=== PATIENT | male | born 1950 ===

== ENCOUNTER 2023-03-12 08:09 | Day surgery (SDC) | payer MEDICARE ==
[2023-03-06 10:04] VITALS: BMI 29.0
[~2023-03-12 08:09] MED LIST: DEXAMETHASONE SOD PHOSPHATE 4 MG/ML 1 ML VIAL IV ONE; FAMOTIDINE 20 MG/2 ML VIAL IV PRN; HYDROmorphone 0.5 MG/0.5 ML SYRINGE IVP PRN; LIDOCAINE 1% (10MG/ML) FOR IV START INTRADERMA PRN; ONDANSETRON 4 MG/2 ML VIAL IVP ONE; droPERidol 5 MG/2 ML VIAL IVP ONE
[2023-03-12 08:50] VITALS: TEMP 97.2
[2023-03-12 08:52] LABS: Glucose,Whole Blood 174 mg/dL (70-110)
[2023-03-12] MEDS: LACTATED RINGERS 1,000 ML IV SCH ×2 (08:56→09:12)
[2023-03-12] MEDS ORDERED: LIDOCAINE 4% LTA KIT (4 ML) TOPICAL ONE (09:11)
[2023-03-12] MEDS ORDERED: MIDAZOLAM 2 MG/2 ML VIAL ONE (09:11)
[2023-03-12] MEDS ORDERED: fentaNYL (PF) 50 MCG/ML 2 ML AMP ONE (09:11)
[2023-03-12] MEDS ORDERED: SUCCINYLCHOLINE CHLORIDE 200 MG/10 ML VIAL IV ONE (09:11)
[2023-03-12] MEDS ORDERED: PROPOFOL 10 MG/ML 20 ML VIAL IV ONE (09:11)
[2023-03-12] MEDS ORDERED: DEXAMETHASONE SOD PHOSPHATE 10 MG/ML 1 ML VIAL ONE (09:11)
[2023-03-12] MEDS ORDERED: LIDOCAINE 1% INJ 10MG/ML (20 ML MDV) ONE (09:11)
[2023-03-12] MEDS ORDERED: LIDOCAINE 2%-EPI 1:100,000 20 ML VIAL SQ ONE (09:39)
--- NOTE | 2023-03-12 10:05 | P.OP ---
Date of Procedure: 03/12/23 Preoperative Diagnosis: Laryngeal and nasopharyngeal papillomas, right nasal polyp Postoperative Diagnosis: Same, appearance of right posterior nasal and nasopharyngeal papilloma rather than polyp Procedure(s) Performed: Right nasal endoscopy with papilloma removal from the right posterior nasal cavity and nasopharynx Microlaryngoscopy with biopsy and excision of laryngeal papillomas Anesthesia: ERIN Surgeon: Julio Penn Estimated Blood Loss (ml): 5 Pathology: other (Right nasal polyp, nasopharyngeal papillomas, laryngeal papillomas) Condition: stable Disposition: PACU Indications for Procedure: This 72-year-old white male with a 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 He also has more recent nasal airway obstruction particularly on the right with visualized polyp posteriorly on the right Operative Findings: Right posterior nasal cavity and nasopharyngeal papillomas this was confluent and appeared to be approximately 2 cm, papillomas right and left false and true vocal cords approximate 1 cm total diameter Description of Procedure: The patient was brought in the operative suite and placed in a supine position. The patient underwent induction of general anesthesia with oral endotracheal intubation without difficulty. The patient was prepped and draped in usual aseptic fashion. I will nasal endoscopy was performed. Proceeding on the right the right nasal and nasopharyngeal papillomatous appearing tissue was debrided with microdebrider 4 mm blade and then hemostasis gained with suction cautery. Once hemostasis was obtained attention was turned to the larynx. Tooth guard was placed and direct laryngoscopy was performed with systematic evaluation of the base of tongue vallecula both piriform sinuses post cricoid area and endolarynx. With the larynx in good visualization the laryngoscope was placed in suspension and the Zeiss microscope was brought into position. Gross papillomas on the left false vocal cord right false vocal cord and right true vocal cords were debrided from with the dice spotter microdebrider blade leaving the normal-appearing mucosa intact. The lamina propria was left intact on the true vocal cord. Once the gross papillomas were debrided hemostasis was noted to be good spontaneously and the laryngoscope and tooth guard were removed. The patient was then suctioned in oral gastric action. The patient was laid procedure well was excised in the operating suite and transferred to postop recovery area in satisfactory condition.
[2023-03-12 10:36] VITALS: RESP 16
[2023-03-12] MEDS ORDERED: ACETAMINOPHEN TAB 500 MG TAB PO ONE (11:05)
[2023-03-12] MEDS ORDERED: ACETAMINOPHEN TAB 500 MG TAB ONE (11:06)
[2023-03-12 11:28] VITALS: BP 121/76; PULSE 85
== END 2023-03-12 11:52 | disposition home or self-care (01) ==
LOC: OR 08:09
PROVIDERS: ATTEND Otolaryngology
DX: D14.1 Benign neoplasm of larynx (principal); J33.8 Other polyp of sinus; J33.9 Nasal polyp, unspecified; I48.91 Unspecified atrial fibrillation; I10 Essential (primary) hypertension; E11.9 Type 2 diabetes mellitus without complications; E66.9 Obesity, unspecified; Z79.82 Long term (current) use of aspirin; Z79.84 Long term (current) use of oral hypoglycemic drugs; Z79.899 Other long term (current) drug therapy; Z85.46 Personal history of malignant neoplasm of prostate; Z98.890 Other specified postprocedural states
CPT/HCPCS: 31541; 88304; 88305; J2250; J0330; J1100 ×2; J0690; J2405; J2001; J3010; J3490; J2704

== ENCOUNTER → 2023-12-23 | Outpatient (CLI) | payer MEDICARE | END | disposition home or self-care (01) | LOC: LABWHC1 12:35 | PROVIDERS: ATTEND Otolaryngology | DX: Z01.812 Encounter for preprocedural laboratory examination (principal); I10 Essential (primary) hypertension | CPT/HCPCS: 93005 ==